=== PATIENT | male | born 1965 | race Caucasian/White ===

== ENCOUNTER 2018-01-25 08:41 | Outpatient (CLI) | payer OTHER ==
--- NOTE | 2018-01-26 15:13 | MRI Report ---
Procedure Date: 01/25/2018 Accession Number: [id number] / [id number] Procedure: MRI - Lumbar Spine W/O CPT Code: FULL RESULT: EXAM: MRI LUMBAR SPINE WITHOUT CONTRAST EXAM DATE: 01/25/2018 09:20 AM. CLINICAL HISTORY: Low back pain. COMPARISON: None. TECHNIQUE: Multiplanar, multisequence T1-weighted and fluid-sensitive sequences of the lumbar spine from T12 to S1 without contrast. Other: None. FINDINGS: Numbering assumes 5 non-rib bearing lumbar type vertebral bodies. The distal tip of the conus medullaris is seen at the level of the L1 vertebral body. No suspicious marrow replacement is present in the lumbar vertebral bodies. Degenerative Schmorl's node formation is seen involving the superior and inferior endplate of T11. No significant spondylolisthesis is present. Anterior wedging at T12 and at L1 might well be developmental. T11-L4: No posterior bulge of the annulus or posterior disk protrusion is present at these levels. L4-L5: A posterior bulge of the annulus is seen. There is a minimal disk protrusion involving the posterolateral and proximal foraminal margin of the disk bilaterally. There is an associated annular fissure on the left. Superior lateral recess narrowing is seen bilaterally. No central canal or foraminal stenosis. L5-S1: A minimal shallow proximal foraminal protrusion is seen with an annular fissure on the right. No central canal or foraminal stenosis. Mild facet/ligamentum flavum hypertrophy is seen in the mid to lower lumbar spine. Anterior disk protrusion osteophyte formation are seen from L1 through L5. IMPRESSION: 1. Minimal degenerative disk disease is seen at L4-L5 and L5-S1. 2. There is an annular fissure on the left at L4-L5 and on the right at L5-S1. 3. No central canal or foraminal stenosis. 4. No acute or subacute endplate infraction is present. Comment: The following findings are so common in adults without low back pain that while we report their presence, they must be interpreted with caution and in the context of the clinical situation. (Reference Krissyk et al, Spine 2001) Prevalence of findings in patients without low back pain: Disk degeneration (any evidence): 92% Disk desiccation/T2 signal loss: 83% Disk height loss: 56% Disk bulge: 64% Disk protrusion: 32% Annular tear/high intensity zone: 38% RADIA
== END 2018-01-25 08:42 | disposition home or self-care (01) ==
LOC: DI 08:41
PROVIDERS: ATTEND Nurse Practitioner Acute Care
DX: M54.5 Low back pain (principal); M51.26 Other intervertebral disc displacement, lumbar region; M51.36 Other intervertebral disc degeneration, lumbar region; M51.37 Other intervertebral disc degeneration, lumbosacral region; M51.27 Other intervertebral disc displacement, lumbosacral region
CPT/HCPCS: 72148